=== PATIENT | male | born 1985 | race Caucasian/White ===

== ENCOUNTER 2019-04-22 17:31 | Emergency (ER) | payer SELFPAY ==
[2019-04-22 17:38] VITALS: TEMP 97.9; BMI 34.4
--- NOTE | 2019-04-22 17:38 | PDOC ---
Rapid Medical Evaluation Chief Complaint: Cold Symptoms Time Seen by Provider: 04/22/19 17:35 Medical Evaluation: 04/22/19 17:35 Pt with complaints of: n/v/d chills, stopped opiate yesterday although has been taking it daily x 5 yrs, took a friend's suboxone today and then s/s began Pt on brief exam: vss pt ordered for: none, (withdrawing) pt to proceed to the ED Discharge Disposition - Diagnosis Nausea - Referrals - Patient Instructions - Post Discharge Activity
[2019-04-22] MEDS ORDERED: hydrOXYzine PAMOATE 50 MG CAPSULE (FP) PO ONE (18:12)
[2019-04-22] MEDS ORDERED: diazePAM 5 MG TABLET PO ONE (18:12)
[2019-04-22] MEDS ORDERED: IBUPROFEN 600 MG TABLET (FP) PO ONE ×2 (18:13→18:19)
[2019-04-22] MEDS ORDERED: diazePAM 5 MG TABLET ONE (18:19)
--- NOTE | 2019-04-22 18:20 | PDOC ---
History of Present Illness - General Chief Complaint: Cold Symptoms Stated Complaint: diarrhea, oxycodone withdrawal Time Seen by Provider: 04/22/19 17:35 History Source: Patient Exam Limitations: No Limitations - History of Present Illness Initial Comments: 04/22/19 18:17 HISTORY OF PRESENT ILLNESS: 33-year-old male with a history of chronic back pain taking Percocets over the past 5 years. Patient took his last Percocet yesterday and then took a friend's Suboxone today the. Patient began to experience chills, nausea, diarrhea, increased irritability and goosebumps after taking the Suboxone. Patient denies fevers, shortness of breath, vomiting. Patient has an appointment with his painter plate on 05/04. No recent travel or sick contacts. PAST MEDICAL HISTORY: See HPI SURGICAL HISTORY: Denies ALLERGIES: No known drug allergies REVIEW OF SYSTEMS General/Constitutional: See HPI HEENT: Denies change in vision. Denies ear pain or discharge. Denies sore throat. Cardiovascular: Denies chest pain or shortness of breath. Respiratory: Denies cough, wheezing, or hemoptysis. Gastrointestinal: See HPI Genitourinary: Denies dysuria, frequency, or change in urination. Musculoskeletal: Denies joint or muscle swelling or pain. Denies neck or back pain. Skin and breasts: See HPI Neurologic: Denies headache, vertigo, loss of consciousness, or loss of sensation. Psychiatric: Denies depression or anxiety. Endocrine: Denies increased thirst. Denies abnormal weight change. Hematologic/Lymphatic: Denies anemia, easy bleeding, or history of blood clots. Allergic/Immunologic: Denies hives or skin allergy. Denies latex allergy. PHYSICAL EXAM General Appearance: Well-appearing, appropriately dressed. No apparent distress , no intoxication. HEENT: EOMI, PERRLA, normal ENT inspection, normal voice, TMs normal, pharynx normal. No conjunctival pallor. No photophobia, scleral icterus. Neck: Supple. Trachea midline. No tenderness, rigidity, carotid bruit, stridor , lymphadenopathy, or thyromegaly. Respiratory/Chest: Lungs CTAB. No shortness of breath, chest tenderness, respiratory distress, accessory muscle use. No crackles, rales, rhonchi, stridor , wheezing, dullness Cardiovascular: RRR. S1, S2. No JVD, murmur, bradycardia, tachycardia. Vascular Pulses: Dorsalis-Pedis (R): 2+, Dorsalis-Pedis (L): 2+ Gastrointestinal/Abdominal: Normal bowel sounds. Abdomen soft, non-distended. No tenderness or rebound tenderness. No organomegaly, pulsatile mass, guarding, hernia, hepatomegaly, splenomegaly. Lymphatic: No adenopathy, tenderness. Musculoskeletal/Extremities: Normal inspection. FROM of all extremities, normal capillary refill. Pelvis Stable. No CVA tenderness. No tenderness to extremities, pedal edema, swelling, erythema or deformity. Integumentary: Piloerection present to bilateral upper extremities. Skin is moist to the touch without visible droplets of moisture. Neurologic: plant superintendent II-XII intact. Fully oriented, alert. Appropriate mood/affect. Motor strength 5/5. No appreciable EOM palsy, facial droop or sensory deficit. Past History - Past Medical History Allergies/Adverse Reactions: Allergies Allergy/AdvReac Type Severity Reaction Status Date / Time No Known Allergies Allergy Verified 04/22/19 17:38 Home Medications: Ambulatory Orders hydrOXYzine PAMOATE [Vistaril -] 50 mg PO TID PRN #21 capsule 04/22/19 COPD: No Other medical history: back pain oxycodone for 6 years, herniated dics - Psycho Social/Smoking Cessation Hx Smoking History: Current every day smoker Number of Cigarettes Smoked Daily: 10 Information on smoking cessation initiated: Yes Hx Alcohol Use: No Drug/Substance Use Hx: No *Physical Exam - Vital Signs Last Vital Signs Temp Pulse Resp BP Pulse Ox 97.9 F 86 19 126/68 99 04/22/19 17:34 04/22/19 17:34 04/22/19 17:34 04/22/19 17:34 04/22/19 17:34 Medical Decision Making - Medical Decision Making 04/22/19 18:20 A/P: 33-year-old male with opiate withdrawal Cows score of 10. We will treat patient's symptoms with Valium 10 mg orally now Hydroxyzine 50 mg orally now Motrin 600 mg orally now Reassess 04/22/19 21:01 Patient symptoms are well controlled after receiving the above medications as well as clonidine 0.1 mg orally. Patient is requesting discharge at this time. I feel the patient is a safe environment to be discharged to I will discharge home to follow-up with his painter plate as soon as possible. I discussed the physical exam findings, ancillary test results and final diagnoses with the patient. I answered all of the patient's questions. The patient was satisfied with the care received and felt comfortable with the discharge plan and treatment plan. The patient will call their primary care physician within 24 hours to arrange follow-up and will return to the Emergency Department with any new, persistent or worsening symptoms. Discharge - Discharge Information Problems reviewed: Yes Clinical Impression/Diagnosis: Opiate withdrawal Condition: Fair Disposition: HOME - Admission No - Additional Discharge Information Prescriptions: hydrOXYzine PAMOATE [Vistaril -] 50 mg PO TID PRN #21 capsule PRN Reason: Anxiety - Follow up/Referral Referrals: Jaswant Ding MD [Primary Care Provider] - - Patient Discharge Instructions Additional Instructions: Do not take Suboxone again without physician consultation. Make an appoint with your painter plate should you choose to stop prescribe medications. Take hydroxyzine 50 mg orally every 8 hours as needed for anxiety. Return to the emergency department for any new or worsening symptoms. Thank you very much for choosing us to provide your emergent health care needs. - Post Discharge Activity
[2019-04-22] MEDS ORDERED: cloNIDine HCL 0.1 MG TABLET PO ONE (18:56)
[2019-04-22] MEDS ORDERED: cloNIDine HCL 0.1 MG TABLET ONE (19:12)
[2019-04-22 21:38] VITALS: BP 122/70; PULSE 83
== END 2019-04-22 21:35 | disposition home or self-care (01) ==
LOC: JER 17:31
DX: F11.23 Opioid dependence with withdrawal (principal)
CPT/HCPCS: 99282-25; J0735